=== PATIENT | female | born 1985 | race African-American/Black ===

== ENCOUNTER 2024-01-22 09:11 | Inpatient (IN) | payer OTHER ==
[~2024-01-22] VITALS: Ht 175.3 cm; Wt 109.8 kg
[2024-01-22 09:34] VITALS: PULSE 76; RESP 16; O2SAT 100
--- NOTE | 2024-01-22 09:43 | ED.PDOC ---
General HPI Comments A 38 YEAR OLD FEMALE PRESENTS TO THE ED WITH COMPLAINT OF RIGHT FLANK PAIN. PATIENT STATES SHE HAS BEEN EXPERIENCING RIGHT FLANK PAIN THAT IS WORSE WITH MOVEMENT FOR THE PAST 3 DAYS. PATIENT NOTES SHE WAS ALSO BEEN EXPERIENCING NAUSEA AND VOMITING WITH HER FLANK PAIN. 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 PATIENT DENIES DYSURIA, HEMATURIA, FEVER, CHILLS, SHORTNESS OF BREATH, CHEST PAIN, ABDOMINAL PAIN, HEADACHE, OR OTHER COMPLAINTS. NO OTHER SYMPTOMS OR MODIFYING FACTORS AT THIS TIME. PATIENT IS ALERT, ORIENTED X 4, AND HAS STEADY GAIT. Chief Complaint: Flank Pain Time Seen by MD: 09:20 Primary Care Provider: DIEGO Reviewed notes: Nurses Notes, Medications, Allergies Allergies: Coded Allergies: NO KNOWN ALLERGIES (Unverified , 01/22/24) Information Source: Patient Mode of Arrival: Ambulatory Severity: Moderate Inability to void: None Timing: Days Duration: Since onset, Days Prehospital treatment: None Onset: Spontaneous Symptoms: Other (RIGHT FLANK PAIN) History of: Other (BORN WITH ONLY ONE KIDNEY) Location: (R) Flank Modifying factors: None associated signs and symptoms: Nausea, Vomiting, Flank Pain Past Medical History PAST MEDICAL HISTORY: UTI'S Past Medical History (Other): BORN WITH ONLY 1 KIDNEY Surgical History: Denies all surgeries [employer] History: No Pertinent [employer] History Family History Family History: Reviewed,noncontributory to illness Social History Smoker: Non-Smoker Alcohol: Denies ETOH Use Drugs: Denies Drug Use Lives In: Home Constitutional: denies: chills, diaphoresis, fatigue, fever, malaise, sweats, weakness, others EENTM: denies: blurred vision, double vision, ear bleeding, ear discharge, ear drainage, ear pain, ear ringing, eye pain, eye redness, hearing loss, mouth pain, mouth swelling, nasal discharge, nose bleeding, nose congestion, nose pain, photophobia, tearing, throat pain, throat swelling, voice changes, others Respiratory: denies: cough, hemoptysis, orthopnea, SOB at rest, shortness of breath, SOB with excertion, stridor, wheezing, others Cardiovascular: denies: chest pain, dizzy spells, diaphoresis, Dyspnea on exertion, edema, irregular heart beat, left arm pain, lightheadedness, palpitations, PND, syncope, others Gastrointestinal: reports: nausea, vomiting; denies: abdomen distended, abdominal pain, blood streaked bowels, constipated, diarrhea, dysphagia, difficulty swallowing, hematemesis, melena, poor appetite, poor fluid intake, rectal bleeding, rectal pain, others Genitourinary: reports: flank pain (RIGHT FLANK PAIN); denies: abnormal vagina bleeding, burning, dyspareunia, dysuria, frequency, hematuria, incontinence, pain, , vagina discharge, urgency, others Neurological: denies: dizziness, fainting, headache, left sided numbness, left sided weakness, numbness, paresthesia, pre-existing deficit, right sided numbness, right sided weakness, seizure, speech problems, tingling, tremors, weakness, others Musculoskeletal: denies: back pain, gout, joint pain, joint swelling, muscle pain, muscle stiffness, neck pain, others Integumetry: denies: bruises, change in color, change in hair/nails, dryness, laceration, lesions, lumps, rash, wounds, others Allergic/Immunocompromised: denies: Difficulty Healing, Frequent Infections, Hives, Itching, others Hematologic/Lymphatic: denies: anemia, blood clots, easy bleeding, easy bruising, swollen glands, others Endocrine: denies: excessive hunger, excessive sweating, excessive thirst, excessive urination, flushing, intolerance to cold, intolerance to heat, unexplained weight gain, unexplained weight loss, others Psychiatric: denies: anxiety, bipolar disorder, depression, hopeless, panic disorder, schizophrenia, sleepless, suicidal, others All Other Systems: Reviewed and Negative Physical Exam General Appearance: Mild Distress, Obese HEENT: Normal ENT Inspection, PERRL/EOMI, Pharynx Normal, TMs Normal Neck: Full Range of Motion, Non-Tender, Normal, Normal Inspection Respiratory: Chest Non-Tender, Lungs Clear, No Accessory Muscle Use, No Respiratory Distress, Normal Breath Sounds Cardiovascular: No Edema, No JVD, No Murmur, No Gallop, Normal Peripheral Pulses, Regular Rate/Rhythm Breast Exam: Deferred Gastrointestinal: No Organomegaly, No Pulsatile Mass, Normal Bowel Sounds, Soft, Tenderness (RIGHT FLANK WITH CVA TENDERNESS. ) Genitalia: Deferred Pelvic: Deferred Rectal: Deferred Extremities: No calf tenderness, Normal capillary refill, Normal inspection, Normal range of motion, Non-tender, No pedal edema Musculoskeletal : Apperance: Normal Neurologic: Alert, nutrition faculty member II-XII nml as Tested, No Motor Deficits, Normal Affect, Normal Mood, No Sensory Deficits Cerebellar Function: Normal Reflexes: Normal Skin: Dry, Normal Color, Warm Peripheral Pulses: 2+ carotid (R), 2+ carotid (L) Lymphatic: No Adenopathy Was a procedure done? Was a procedure done?: No Differential Diagnosis Kidney stone (Female): Musculoskeletal pain, Pyelonephritis, Renal failure, Strain, Urolithiasis Kidney stone (Male): N/A Penile/Scrotal: N/A Urinary Problem (Male): N/A Urinary Problem (Female): Pyelonephritis, Urolithiasis, UTI, N/A X-Ray, Labs, Meds, VS Vital Signs Date Time Temp Pulse Resp B/P (MAP) Pulse Ox O2 Delivery O2 Flow Rate FiO2 01/22/24 11:52 60 16 128/89 01/22/24 11:50 60 16 128/89 (102) 100 01/22/24 09:34 97.4 76 16 130/88 (102) 100 97.4 01/22/24 09:34 76 16 100 Room Air* 0 21 01/22/24 09:19 97.4 76 16 130/88 (102) 100 Lab Test 01/22/24 09:35 01/22/24 09:00 Range/Units White Blood Count 7.4 4.4-10.8 10^3/uL Red Blood Count 4.93 4.0-5.20 10^6/uL Hemoglobin 11.9 L 12.2-16.2 g/dL Hematocrit 36.8 36.0-46.0 % Mean Corpuscular Volume 74.6 L 80.0-100.0 fL Mean Corpuscular Hemoglobin 24.1 L 28.0-32.0 pg Mean Corpuscular Hemoglobin Concent 32.3 32.0-36.0 g/dL Red Cell Distribution Width 16.4 H 11.8-14.3 % Platelet Count 274 140-450 10^3/uL Mean Platelet Volume 8.2 6.9-10.8 fL Neutrophils (%) (Auto) 72.9 37.0-80.0 % Lymphocytes (%) (Auto) 20.8 10.0-50.0 % Monocytes (%) (Auto) 5.8 0.0-12.0 % Eosinophils (%) (Auto) 0.1 0.0-7.0 % Basophils (%) (Auto) 0.4 0.0-2.0 % Neutrophils # (Auto) 5.4 1.6-8.6 10 ^3/uL Lymphocytes # (Auto) 1.5 0.4-5.4 10 ^3/uL Monocytes # (Auto) 0.4 0-1.3 10 ^3/uL Eosinophils # (Auto) 0 0-0.8 10 ^3/uL Basophils # (Auto) 0 0-0.2 10 ^3/uL Nucleated Red Blood Cells 0.0 % Sodium Level 139 136-145 mmol/L Potassium Level 3.7 3.5-5.1 mmol/L Chloride Level 105 98-107 mmol/L Carbon Dioxide Level 26 20-31 mmol/L Anion Gap 8 5-15 Blood Urea Nitrogen 7 L 9-23 mg/dL Creatinine 0.96 0.550-1.02 mg/dL Glomerular Filtration Rate Calc 77 >90 mL/min BUN/Creatinine Ratio 7.3 L 10.0-20.0 Serum Glucose 100 74-106 mg/dL Calcium Level 9.6 8.7-10.4 mg/dL Urine Color Yellow Yellow Urine Clarity Turbid H Clear Urine pH 5.5 5.0-9.0 Urine Specific [place] 1.024 1.001-1.035 Urine Protein 1+ H Negative Urine Ketones 3+ H Negative Urine Blood 2+ H Negative /uL Urine Nitrite 2+ H Negative Urine Bilirubin Negative Negative Urine Urobilinogen Normal Negative mg/dL Urine Leukocyte Esterase 1+ Negative /uL Urine RBC 7 0 - 4 /hpf Urine WBC 15 0 - 5 /hpf Urine Squamous Epithelial Cells Few <5 /hpf Urine Bacteria Few H None Seen /hpf Urine Hyaline Casts Few 0 - 2 /lpf Urine Mucus Few None Seen Urine Glucose Normal Normal mg/dL Urine Test Negative Negative Current Medications Medications (Trade) Dose Ordered Sig/Brad Route Start Time Stop Time Status Last Admin Sodium Chloride 1,000 ml @ 1,000 mls/hr Q1H ONCE IV 01/22/24 10:00 01/22/24 10:59 DC 01/22/24 11:51 Ceftriaxone Sodium 50 ml @ 100 mls/hr ONCE ONCE IV 01/22/24 10:00 01/22/24 10:29 DC 01/22/24 11:51 Ondansetron HCl (Zofran) 4 mg ONCE ONCE IV 01/22/24 10:00 01/22/24 10:01 DC 01/22/24 11:51 Morphine Sulfate 2 mg ONCE ONCE IV 01/22/24 11:00 01/22/24 11:01 DC 01/22/24 11:52 X-Ray, Labs, Meds, VS Comment EXTERNAL NOTES: NONE LABS ORDERED: CBC, BMP, UA, URINE , URINE CULTURE, REVIEWED AND INTERPRETED RESULTS: NITRITE 2+, BLOOD 2+, KET 3+, LEUKO 1+ INDEPENDENT HISTORIANS: NONE TREATMENT ORDERED: NS 1 L IV, ROCEPHIN 1 G IV, ZOFRAN 4 MG IV, MORPHINE 2 MG IV PATIENT'S CASE AND RESULTS HAVE BEEN DISCUSSED WITH THE ED ATTENDING PHYSICIAN AND THEY AGREE WITH MY PLAN OF CARE. I HAVE INFORMED THE PATIENT THAT SHE HAS A URINARY TRACT INFECTION AND IS DEHYDRATED. SINCE THE PATIENT IS CURRENTLY EXPERIENCING NAUSEA AND VOMITING, HAS CVA TENDERNESS NOTED UPON PALPATION, AND HAS A HISTORY OF ONLY 1 KIDNEY, I HAVE DETERMINED THE PATIENT SHOULD BE ADMITTED TO THIS HOSPITAL FOR FURTHER TREATMENT AND EVALUATION. I HAVE INFORMED THE PATIENT OF MY PLAN TO ADMIT HER FOR FURTHER TREATMENT AND SHE AGREED WITH MY PLAN OF CARE. THE ON-CALL HOSPITALIST WILL BE CONTACTED AND THE PATIENT WILL BE ADMITTED FOR FURTHER TREATMENT AND EVALUATION. Time of 1ST Reevaluation: 10:36 Reevaluation 1ST: Unchanged Patient Education/Counseling: Diagnosis, Treatment Family Education/Counseling: Diagnosis, Treatment Departure 1 Departure Time of Disposition: 10:36 Impression: Primary Impression: Acute pyelonephritis Disposition: ADMITTED INPATIENT Admit to: Med Surg Condition: Serious Critical Care Note Critical Care Time?: No Stability Stability form required: No Unstable for transfer: Requires medication, ED Physician Assesment, Possible rapid decline Heart Score Heart Score: Heart Score Response (Comments) Value History N/A 0 EKG N/A 0 Age N/A 0 Risk Factors N/A 0 Troponin N/A 0 Total 0 I personally scribed for SARAHI NICOLE ([email or web address]) on 01/22/24 at 09:43. Electronically submitted by Joseph Olson ([email or web address]). I personally scribed for SARAHI NICOLE ([email or web address]) on 01/22/24 at 10:16. Electronically submitted by Joseph Olson ([email or web address]). I personally scribed for SARAHI NICOLE ([email or web address]) on 01/22/24 at 10:42. Electronically submitted by Joseph Olosn ([email or web address]). SARAHI NICOLE Jan 22, 2024 09:43
[2024-01-22 09:44] LABS: Eosinophils # (auto) 0 10 ^3/uL (0-0.8); Lymphocytes # (auto) 1.5 10 ^3/uL (0.4-5.4); Monocytes # (auto) 0.4 10 ^3/uL (0-1.3); Neutrophils # (auto) 5.4 10 ^3/uL (1.6-8.6); White Blood Cell 7.4 10^3/uL (4.4-10.8)
[2024-01-22 09:45] LABS: Basophils # (auto) 0 10 ^3/uL (0-0.2); Basophils % (auto) 0.4 % (0.0-2.0); Eosinophils % (auto) 0.1 % (0.0-7.0); Hematocrit 36.8 % (36.0-46.0); Hemoglobin 11.9 g/dL (12.2-16.2); Lymphocytes % (auto) 20.8 % (10.0-50.0); Mean Corpuscular Hemoglobin 24.1 pg (28.0-32.0); Mean Corpuscular Hgb Conc. 32.3 g/dL (32.0-36.0); Mean Corpuscular Volume 74.6 fL (80.0-100.0); Monocytes % (auto) 5.8 % (0.0-12.0); Neutrophils % (auto) 72.9 % (37.0-80.0); Platelet Count (auto) 274 10^3/uL (140-450); Red Blood Cells 4.93 10^6/uL (4.0-5.20); Red Cell Distribution Width 16.4 % (11.8-14.3)
[2024-01-22 09:48] LABS: Urine Bacteria FEW /hpf (None Seen); Urine Blood 2+ /uL (Negative); Urine Clarity Turbid (Clear); Urine Color Yellow (Yellow); Urine Hyaline Cast FEW /lpf (0 - 2); Urine Mucus FEW (None Seen); Urine Protein, UAD 1+ (Negative); Urine Specific Gravity 1.024 (1.001-1.035); Urine Urobilinogen Normal (Negative); Urine WBC 15 /hpf (0 - 5); Urine pH 5.5 (5.0-9.0)
[2024-01-22 09:53] LABS: Chloride 105 mmol/L (98-107); Potassium 3.7 mmol/L (3.5-5.1); Sodium 139 mmol/L (136-145)
[2024-01-22 09:54] LABS: Anion Gap 8 (5-15); Carbon Dioxide 26 mmol/L (20-31)
[2024-01-22 09:55] LABS: Calcium 9.6 mg/dL (8.7-10.4)
[2024-01-22 09:59] LABS: Glucose 100 mg/dL (74-106)
[2024-01-22 10:08] LABS: BUN/Creatinine Ratio 7.3 (10.0-20.0)
[2024-01-22 10:19] LABS: Blood Urea Nitrogen 7 mg/dL (9-23)
[2024-01-22] MEDS: cefTRIAXone 1GM/50ML D5W 50 ML IV ONE (11:51)
[2024-01-22] MEDS: SODIUM CHLORIDE 0.9% 1,000 ML IV ONE (11:51)
[2024-01-22] MEDS: ONDANSETRON HCL 4 MG/2 ML VIAL IV ONE (11:51)
[2024-01-22] MEDS: MORPHINE SULFATE INJ 2 MG/ml SYRG IV ONE (11:52)
[2024-01-22] MEDS ORDERED: DOCUSATE SOD 100 MG CAP PO PRN (12:30)
[2024-01-22] MEDS ORDERED: ONDANSETRON HCL 4 MG/2 ML VIAL IV PRN (12:30)
[2024-01-22] MEDS ORDERED: MAALOX PLUS or MAALOX 30 ML PO PRN (12:30)
[2024-01-22] MEDS ORDERED: LORazepam 0.5 MG TAB PO PRN (12:30)
[2024-01-22] MEDS ORDERED: TEMAZEPAM 15 MG CAP PO PRN (12:30)
[2024-01-22] MEDS ORDERED: ACETAMINOPHEN 325 MG TAB PO PRN (12:30)
--- NOTE | 2024-01-22 12:39 | DVHHP2 ---
History of Present Illness Reason for Visit: abdominal pain History of Present Illness 38-year-old obese patient with a history of UTIs recurrently patient also has a history of being born only with 1 kidney at this point in time patient is having severe flank pain associated with nausea vomiting headaches fevers and chills with suspected pyelonephritis patient has had this issue multiple times in the past and has been recommended for further evaluation and management and inpatient treatment patient was started on IV antibiotics in the ED we will continue antibiotics inpatient and continue to admit for further evaluation and management Renal/: UTI Review of Systems Constitutional: Yes: Fever, Chills, Weakness; No: Sweats, Malaise, Other Eyes: No: Pain, Vision change, Conjunctivae inflammation, Eyelid inflammation, Other, Redness ENT: No: Ear pain, Ear discharge, Nose pain, Nose discharge, Nose congestion, Mouth pain, Mouth swelling, Throat pain, Throat swelling, Other Respiratory: No: Cough, Dry, Shortness of breath, SOB with excertion, Wheezing, Hemoptysis, Pleuritic Pain, Sputum, Wheezing, Other Cardiovascular: No: Chest Pain, Palpitations, Orthopnea, Paroxysmal Noc. Dyspnea, Edema, Lt Headedness, Other Gastrointestinal: Nausea, Vomiting, Abdominal Pain; No: Diarrhea, Constipation, Melena, Hematochezia, Other Genitourinary: Dysuria, Frequency, Incontinence Musculoskeletal: No: other, neck pain, shoulder pain, arm pain, back pain, hand pain, leg pain, foot pain Skin: No: Rash, Lesions, Jaundice, Bruising, Other Neurological: No: Weakness, Numbness, Incoordination, Change in speech, Confusion, Seizures, Other Allergies: Coded Allergies: NO KNOWN ALLERGIES (Unverified , 01/22/24) Exam Vital Signs Vital Signs Date Time Temp Pulse Resp B/P (MAP) Pulse Ox O2 Delivery O2 Flow Rate FiO2 01/22/24 11:52 60 16 128/89 01/22/24 11:50 100 01/22/24 09:34 97.4 97.4 01/22/24 09:34 Room Air* 0 21 General Appearance: Alert, Oriented X3, mild distress HEENT: Atraumatic, PERRLA, EOMI Respiratory: Clear to auscultation, Normal air movement Cardiovascular: Regular rate, Normal S1, Normal S2 Abdominal: Normal bowel sounds, Soft, No tenderness Extremities: No clubbing, No cyanosis, No edema Skin: No rashes, No breakdown, No significant lesion Neuro: Normal gait, Normal speech Psych/Mental Status: Mood NL Labs/Xrays Labs Test 01/22/24 09:35 01/22/24 09:00 Range/Units White Blood Count 7.4 4.4-10.8 10^3/uL Red Blood Count 4.93 4.0-5.20 10^6/uL Hemoglobin 11.9 L 12.2-16.2 g/dL Hematocrit 36.8 36.0-46.0 % Mean Corpuscular Volume 74.6 L 80.0-100.0 fL Mean Corpuscular Hemoglobin 24.1 L 28.0-32.0 pg Mean Corpuscular Hemoglobin Concent 32.3 32.0-36.0 g/dL Red Cell Distribution Width 16.4 H 11.8-14.3 % Platelet Count 274 140-450 10^3/uL Mean Platelet Volume 8.2 6.9-10.8 fL Neutrophils (%) (Auto) 72.9 37.0-80.0 % Lymphocytes (%) (Auto) 20.8 10.0-50.0 % Monocytes (%) (Auto) 5.8 0.0-12.0 % Eosinophils (%) (Auto) 0.1 0.0-7.0 % Basophils (%) (Auto) 0.4 0.0-2.0 % Neutrophils # (Auto) 5.4 1.6-8.6 10 ^3/uL Lymphocytes # (Auto) 1.5 0.4-5.4 10 ^3/uL Monocytes # (Auto) 0.4 0-1.3 10 ^3/uL Eosinophils # (Auto) 0 0-0.8 10 ^3/uL Basophils # (Auto) 0 0-0.2 10 ^3/uL Nucleated Red Blood Cells 0.0 % Sodium Level 139 136-145 mmol/L Potassium Level 3.7 3.5-5.1 mmol/L Chloride Level 105 98-107 mmol/L Carbon Dioxide Level 26 20-31 mmol/L Anion Gap 8 5-15 Blood Urea Nitrogen 7 L 9-23 mg/dL Creatinine 0.96 0.550-1.02 mg/dL Glomerular Filtration Rate Calc 77 >90 mL/min BUN/Creatinine Ratio 7.3 L 10.0-20.0 Serum Glucose 100 74-106 mg/dL Calcium Level 9.6 8.7-10.4 mg/dL Urine Color Yellow Yellow Urine Clarity Turbid H Clear Urine pH 5.5 5.0-9.0 Urine Specific [place] 1.024 1.001-1.035 Urine Protein 1+ H Negative Urine Ketones 3+ H Negative Urine Blood 2+ H Negative /uL Urine Nitrite 2+ H Negative Urine Bilirubin Negative Negative Urine Urobilinogen Normal Negative mg/dL Urine Leukocyte Esterase 1+ Negative /uL Urine RBC 7 0 - 4 /hpf Urine WBC 15 0 - 5 /hpf Urine Squamous Epithelial Cells Few <5 /hpf Urine Bacteria Few H None Seen /hpf Urine Hyaline Casts Few 0 - 2 /lpf Urine Mucus Few None Seen Urine Glucose Normal Normal mg/dL Urine Test Negative Negative Assessment/Plan Assessment/Plan Admit to [facility] Acute pyelonephritis Patient with signs of leukocytosis White blood cells turbid urine IV hydration IV antibiotics CT abdomen and pelvis rule out hydronephrosis Rule out signs infection based on stones or obstruction Continue with current management p.r.n. management for pain medication Urine cultures to be completed Plan discussed with: Patient My Orders Orders - GENEVA CASEY MD Procedure Category Date Status Time Ct Ab Pel Wo Con-No CT 01/22/24 Logged Oral Or Iv 12:25 Admit ADMIT 01/22/24 Transmitted 12:25 Code Status CODE 01/22/24 Transmitted 12:25 Vital Signs [facility] 01/22/24 In Process 12:25 Review Orders With [facility] 01/22/24 In Process Adm. 12:25 Consistent DIET 01/22/24 Transmitted Carb(Ccho)Diabetes Lunch Sodium Chloride 0.9% [facility] 01/22/24 Logged 12:30 Lorazepam Tablet [facility] 01/22/24 Logged (Ativan Tablet) 12:30 Alum & Mag [facility] 01/22/24 Logged Hydrox-Simethicone 12:30 Docusate Sodium [facility] 01/22/24 Logged Capsule (Colace 12:30 Acetaminophen Tablet [facility] 01/22/24 Logged (Tylenol Tablet) 12:30 Temazepam (Restoril) [facility] 01/22/24 Logged 12:30 Notify Of Changes [facility] 01/22/24 In Process From Base 12:25 Advance Directive [facility] 01/22/24 In Process 12:25 Basic Metabolic Panel LAB 01/23/24 Verified 04:00 Complete Blood Count LAB 01/23/24 Verified 04:00 Urine Bacterial AN 01/22/24 Logged Culture 12:25 Patient Condition ORDERS 01/22/24 Transmitted 12:25 Allergies GIUSEPPE 01/22/24 In Process 12:25 Hydrocodone-Acet [facility] 01/22/24 Logged 5/325mg Tab ([place] 12:30 Ondansetron Hcl [facility] 01/22/24 Logged (Zofran) 12:30 Morphine Sulfate [facility] 01/22/24 Logged Injection 12:30 Notify Md Of Changes GIUSEPPE 01/22/24 In Process From Base 12:25 Oxygen By Nasal RT 01/22/24 Transmitted Cannula 12:25 Ceftriaxone 1gm/50ml [facility] 01/23/24 Logged D5w (Rocephin) 10:00 Problem List: (1) Acute pyelonephritis Date of Service: Jan 22, 2024 Billing Provider: GENEVA CASEY MD Common Visit Codes: [id number] INP/OBS CARE (HIGH) GENEVA CASEY MD Jan 22, 2024 12:39
[2024-01-22] MEDS: SODIUM CHLORIDE 0.9% 1,000 ML IV SCH (12:45)
--- NOTE | 2024-01-22 13:50 | DVH ---
Exam: CT CT AB PEL WO CON-NO ORAL OR IV History: r/o hydroneprhosis and stones Comparison Study: None available at time of dictation. TECHNIQUE: Multidetector CT of the abdomen and pelvis without contrast. Axial, coronal and sagittal m ultiplanar reformats were obtained from the axial data set by the technologist. Radiation Dose Information: CT Dose: CTDI volume is 24.93 mGy. Dose-length product is 1367.97 mGy*cm FINDINGS: The lung bases are clear. Partially visualized heart is unremarkable. Status post cholecystectomy. Mild hepatomegaly. Otherwise, liver, spleen, pancreas and adrenal gland s unremarkable. The right kidney is not visualized with a 2.4 x 1.3 x 3.1 cm soft tissue density over the expected ar ea of the right kidney which is attached by a thin linear tissue to a more inferior 1.1 x 1 x 1.8 cm cystic density. There is hypertrophic appearance of the left kidney. No left renal hydronephrosis or calculi. Mild wall thickening of the anterior urinary bladder which is most likely from inadequate di stension. Uterus and adnexa unremarkable. There appears to be tubal ligation. Mild gastric wall thickening. Small bowel loops unremarkable. Appendix is not definitely visualized. Large bowel is unremarkable. No evidence of intraperitoneal free air or free fluid. No evidence of aortic aneurysm. No significant lymphadenopathy. Tiny fat containing umbilical hernia. The soft tissues unremarkable. No destructive osseous lesions a re noted. Sclerotic focus of the left iliac bone which may represent a bone island with a blastic le mckenna not excluded. Sclerosis of the xevqf-iigagtu-adio-left SI joints which may represent sacroiliiti s. IMPRESSION: Mild gastric wall thickening which may be due to inadequate distention/gastritis. Mild hypertrophy of the left kidney which is otherwise unremarkable. The right kidney is not definitely visualized with a 2.4 x 1.3 x 3.1 cm soft tissue density over the expected area of the right kidney which is attached by a thin linear tissue to a more inferior 1.1 x 1 x 1.8 cm cystic density. 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 Kamar plasm can not be excluded.
[2024-01-22 15:08] VITALS: BP 122/80; PULSE 64; RESP 17; TEMP 98.9; O2SAT 100
[2024-01-22 18:15] VITALS: BP 126/75; PULSE 65; RESP 18; TEMP 98.1; O2SAT 97
[2024-01-22] MEDS: MORPHINE SULFATE INJ 2 MG/ml SYRG IV PRN (18:45)
[2024-01-22 20:00] VITALS: RESP 17
[2024-01-22] MEDS: HYDROcodone-ACET 5/325MG TAB PO PRN (20:23)
[2024-01-22 21:00] VITALS: BP 132/72; PULSE 78; RESP 19; TEMP 97.9; O2SAT 100
[2024-01-23] VITALS (7 sets, daily range): BP systolic 121–151; BP diastolic 55–85; PULSE 60–83; RESP 17–20; TEMP 97.4–98.8; O2SAT 96–100
[2024-01-23 05:52] LABS: Eosinophils # (auto) 0 10 ^3/uL (0-0.8); Mean Corpuscular Hgb Conc. 32.2 g/dL (32.0-36.0); Monocytes # (auto) 0.4 10 ^3/uL (0-1.3); Neutrophils # (auto) 2.9 10 ^3/uL (1.6-8.6); Nucleated Red Blood Cells % 0.2 %; Platelet Count (auto) 227 10^3/uL (140-450)
[2024-01-23 05:57] LABS: Basophils # (auto) 0.1 10 ^3/uL (0-0.2); Basophils % (auto) 1.2 % (0.0-2.0); Eosinophils % (auto) 0.6 % (0.0-7.0); Hematocrit 32.9 % (36.0-46.0); Hemoglobin 10.6 g/dL (12.2-16.2); Lymphocytes # (auto) 2.7 10 ^3/uL (0.4-5.4); Lymphocytes % (auto) 44.3 % (10.0-50.0); Mean Corpuscular Hemoglobin 24.3 pg (28.0-32.0); Mean Corpuscular Volume 75.3 fL (80.0-100.0); Monocytes % (auto) 6.5 % (0.0-12.0); Neutrophils % (auto) 47.4 % (37.0-80.0); Red Blood Cells 4.37 10^6/uL (4.0-5.20); Red Cell Distribution Width 16.3 % (11.8-14.3); White Blood Cell 6.2 10^3/uL (4.4-10.8)
[2024-01-23 06:06] LABS: Anion Gap 8 (5-15); Carbon Dioxide 24 mmol/L (20-31); Sodium 139 mmol/L (136-145)
[2024-01-23 06:12] LABS: BUN/Creatinine Ratio 8.3 (10.0-20.0); Glucose 99 mg/dL (74-106)
[2024-01-23 06:13] LABS: Blood Urea Nitrogen 7 mg/dL (9-23); Calcium 8.6 mg/dL (8.7-10.4); Chloride 107 mmol/L (98-107); Potassium 3.5 mmol/L (3.5-5.1)
[2024-01-23] MEDS: cefTRIAXone 1GM/50ML D5W 50 ML IV SCH (08:26)
--- NOTE | 2024-01-23 15:37 | DVHPNRES ---
Progress Note Date Seen: Jan 23, 2024 Resident Creating Document: ABA RODRIGUES RESIDENT Medical Necessity Reason Pt with a Central, PICC or Fol: No Medical Necessity Reason Right flank pain pyelonephritis Subjective Review of Systems This is a 38-year-old female born with 1 functioning kidney (left) with a history of UTI presented to the ED with one day history of right flank pain that is associated with chills and fever. Flank pain rated as 8/10 with radiation to the right groin. She denied trauma to the abdomen or hematuria. LMP was on 01/16/2024. Patient presented to the ED for further evaluation and management. In the in the ED, initial vitals revealed temperature of 97.4, pulse of 76, respiratory of 16 blood pressure 130/88. Lab work revealed WBC: unremarkable; hemoglobin: 11.9 --> 10.6 with MCV of 74.6. Chemistry was grossly unremarkable urinalysis revealed nitrite 2+, leukocyte esterase 1+ and few bacteria in the urine. CT Abdomen revealed Mild gastric wall thickening which may be due to inadequate distention/gastritis. Mild hypertrophy of the left kidney which is otherwise unremarkable.The right kidney is not definitely visualized with a 2.4 x 1.3 x 3.1 cm soft tissue density over the expected area of the right kidney which is attached by a thin linear tissue to a more inferior 1.1 x 1 x 1.8 cm cystic density. 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 Neoplasm can not be excluded. Constitutional: Fever,chills, right flank pain malaise HEENT: Denies headache, ear pain, ear discharges, conjunctivitis, nasal discharge throat pain Cardiovascular: Denies chest pain, palpitation, orthopnea, PND, or pedal edema Respiratory: Denies shortness of breath, cough cough, sputum production, hemoptysis, GI: abdominal pain, nausea, vomiting; Denies diarrhea, hematemesis, hematochezia, : Right flank pain,Denies frequency, urgency, hematuria, Endocrine: Denies unintentional weight gain or weight loss, feeling of hot flashes, Eliazar: Denies easy bruising, bleeding disorders, epistaxis Musculoskeletal: Denies joint pains, muscle aches Psych: Patient mentioned remembering her son whom she lost in a MVA in August 2023 Objective vital signs Vital Sign Date Time Temp Pulse Resp B/P (MAP) Pulse Ox O2 Delivery O2 Flow Rate FiO2 01/23/24 13:00 98.3 83 17 134/77 (96) 100 98.3 01/23/24 08:15 Room Air* 0 21 Total Intake and Output 01/22/24 01/22/24 01/23/24 15:00 23:00 07:00 Intake Total 1050 ml 1250 ml Balance 1050 ml 1250 ml medications Current Medications Medications Dose Ordered Sig/Brad Route Start Time Stop Time Status Last Admin Dose Admin Sodium Chloride 1,000 ml @ 60 mls/hr [id number] IV 01/22/24 12:30 01/22/24 12:45 60 MLS/HR Lorazepam 0.5 mg Q6HP PRN PO 01/22/24 12:30 Al Hydrox/Mg Hydrox/Simethicone 30 ml Q6HP PRN PO 01/22/24 12:30 Docusate Sodium 100 mg BIDPRN PRN PO 01/22/24 12:30 Acetaminophen 650 mg Q6HP PRN PO 01/22/24 12:30 Temazepam 15 mg QHSP PRN PO 01/22/24 12:30 Acetaminophen/ Hydrocodone Bitart 1 tab Q4HP PRN PO 01/22/24 12:30 01/22/24 20:23 1 TAB Ondansetron HCl 4 mg Q4HP PRN IV 01/22/24 12:30 Morphine Sulfate 2 mg Q4HPRN PRN IV 01/22/24 12:30 01/23/24 05:34 2 MG Ceftriaxone Sodium 50 ml @ 100 mls/hr DAILY IV 01/23/24 10:00 01/23/24 08:26 100 MLS/HR Examination General examination- Mild distress HEENT: PEERLA, no acute nasal discharge Chest: S1-S2 audible, rate and rhythm regular, no murmur Lung: CTAB, no wheeze or rhonchi Abdomen: Right mid quadrant tender. Nondistend, BS+, tenderness, no organomegaly Musculoskeletal: no acute joint swelling or tenderness Extremity: No leg edema Neurological: cranial nerves intact, no acute dysarthria or dysphagia Psychiatry-- Normal mood and affect Skin- no acute rash or purpura laboratory and microbiology Laboratory Tests 01/23/24 05:04 Test 01/23/24 05:04 Range/Units Serum Glucose 99 74-106 mg/dL Microbiology Date/Time Source Procedure Growth Status 01/22/24 09:00 Voided Urine Urine Culture - Preliminary Resulted Labs and/or images reviewed: Labs reviewed by me, Image(s) reviewed by me Problem List/Assessment/Plan Problem List/Assessment/Plan Acute pyelonephritis YUNI; most likely vasomotor nephropathy --> Ruled out nephrolithiasis; reviewed the available imaging studies --->IV hydration; avoid nephrotoxic agents --> urine culture pending --> IV Ceftriaxone Mild microcytic Anemia --> hgb: 11.9 --> 10.6 --> maybe due to ? 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 Manzo Plan discussed with: Patient, Other (Nurse) Addendum Addendum Addendum I was physically present for the russ portions of the service provided to patient by THE RESIDENT. I have reviewed the documentation, discussed the case with resident and agree with the resident's documentation except as noted. Also the patient's clinical case was discussed with the patient's nurse. This medical document was created using an electronic medical record system with computerized dictation system. Although this document has been carefully reviewed, there might still be some phonetic and typographical errors. These areas are purely typographical due to imperfections of the software programs, and do not reflect any compromise in the patient's medical care. Late signature. Date of Service: Jan 23, 2024 Billing Provider: LUCITA MANZO MD Common Visit Codes: [id number] INP/OBS CARE(HIGH) Secondary Visit Codes: [id number] CARE PLAN 30 MINUTES (20 minutes) ABA RODRIGUES RESIDENT Jan 23, 2024 15:36 LUCITA MANZO MD Jan 24, 2024 06:00
[2024-01-24] VITALS (7 sets, daily range): BP systolic 127–144; BP diastolic 69–85; PULSE 64–81; RESP 16–20; TEMP 97.7–98.5; O2SAT 97–100
[2024-01-24 13:30] LABS: Alanine Aminotransferase < 9 U/L (7-40); Albumin 3.5 g/dL (3.2-4.8); Alkaline Phosphatase 42 U/L (46-116); Anion Gap 6 (5-15); Aspartate Aminotransferase 11 U/L (13-40); Bilirubin, Total 0.3 mg/dL (0.2-1.0); Blood Urea Nitrogen < 5 mg/dL (9-23); Calcium 8.9 mg/dL (8.7-10.4); Carbon Dioxide 25 mmol/L (20-31); Chloride 109 mmol/L (98-107); Glucose 103 mg/dL (74-106); Potassium 3.7 mmol/L (3.5-5.1); Sodium 140 mmol/L (136-145); Total Protein 6.4 g/dL (5.7-8.2)
--- NOTE | 2024-01-24 17:46 | DVHPNRES ---
Progress Note Date Seen: Jan 24, 2024 Resident Creating Document: ABA RODRIGUES RESIDENT Medical Necessity Reason Pt with a Central, PICC or Fol: No Medical Necessity Reason Right flank pain pyelonephritis Subjective Review of Systems Seen examined today by the bedside She continues to complain of right flank pain not much different from yesterday. Patient is currently being managed for pyelonephritis with ceftriaxone. CMP today did not reveal any finding within the liver pointing towards any cholestatic processes. We will continue to monitor the patient on antibodies and review as needed. Objective vital signs Vital Sign Date Time Temp Pulse Resp B/P (MAP) Pulse Ox O2 Delivery O2 Flow Rate FiO2 01/24/24 17:04 98.4 66 17 131/76 (94) 98 98.4 01/24/24 08:00 Room Air* 0 21 Total Intake and Output 01/23/24 01/23/24 01/24/24 15:00 23:00 07:00 Intake Total 50 ml 1230 ml 1300 ml Output Total 600 ml 600 ml Balance 50 ml 630 ml 700 ml medications Current Medications Medications Dose Ordered Sig/Brad Route Start Time Stop Time Status Last Admin Dose Admin Sodium Chloride 1,000 ml @ 60 mls/hr [id number] IV 01/22/24 12:30 01/24/24 06:24 60 MLS/HR Lorazepam 0.5 mg Q6HP PRN PO 01/22/24 12:30 Al Hydrox/Mg Hydrox/Simethicone 30 ml Q6HP PRN PO 01/22/24 12:30 Docusate Sodium 100 mg BIDPRN PRN PO 01/22/24 12:30 Acetaminophen 650 mg Q6HP PRN PO 01/22/24 12:30 Temazepam 15 mg QHSP PRN PO 01/22/24 12:30 Acetaminophen/ Hydrocodone Bitart 1 tab Q4HP PRN PO 01/22/24 12:30 01/23/24 20:09 1 TAB Ondansetron HCl 4 mg Q4HP PRN IV 01/22/24 12:30 Morphine Sulfate 2 mg Q4HPRN PRN IV 01/22/24 12:30 01/24/24 09:50 2 MG Ceftriaxone Sodium 50 ml @ 100 mls/hr DAILY IV 01/23/24 10:00 01/24/24 09:42 100 MLS/HR Examination General examination- Mild distress same as yesterday HEENT: PEERLA, no acute nasal discharge Chest: S1-S2 audible, rate and rhythm regular, no murmur Lung: CTAB, no wheeze or rhonchi Abdomen: Right mid quadrant tender. Nondistend, BS+, tenderness, no organomegaly Musculoskeletal: no acute joint swelling or tenderness Extremity: No leg edema Neurological: cranial nerves intact, no acute dysarthria or dysphagia Psychiatry-- Normal mood and affect Skin- no acute rash or purpura laboratory and microbiology Laboratory Tests 01/24/24 12:58 01/23/24 05:04 Test 01/24/24 12:58 Range/Units Serum Glucose 103 74-106 mg/dL Microbiology Date/Time Source Procedure Growth Status 01/22/24 09:00 Voided Urine Urine Culture - Final Complete Problem List/Assessment/Plan Problem List/Assessment/Plan Acute pyelonephritis --> Ruled out nephroliathiasis --->IV hydration --> urine culture: Mixed Nicki; contaminated --> CMP: unrevealing --> Continue Ceftriaxone Mild microcytic Anemia --> hgb: 11.9 --> 10.6 --> maybe due to ? 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 Mauro Plan discussed with: Patient My Orders My Orders Orders - ABA RODRIGUES Procedure Category Date Status Time Drug Screen LAB 01/24/24 Logged 09:04 Date of Service: Jan 24, 2024 Billing Provider: REEAN CARMICHAEL MD Common Visit Codes: [id number] INP/OBS CARE(HIGH) ABA RODRIGUES Jan 24, 2024 17:46 REENA CARMICHAEL MD Jan 31, 2024 00:01
[2024-01-25 01:00] VITALS: BP 135/75; PULSE 86; RESP 16; TEMP 97.9; O2SAT 98
[2024-01-25 05:00] VITALS: BP 123/78; PULSE 80; RESP 17; TEMP 98.2; O2SAT 99
[2024-01-25 09:28] VITALS: BP 133/80; PULSE 68; RESP 17; TEMP 98.3; O2SAT 100
[2024-01-25] MEDS ORDERED: CYCL-837 PO (11:00)
[2024-01-25 11:10] VITALS: BP 133/80; PULSE 68; RESP 17; TEMP 98.3; O2SAT 100
--- NOTE | 2024-01-25 19:18 | DVHDSRES ---
Discharge Summary Date of Admission Resident Creating Document: ABA RODRIGUES RESIDENT Jan 22, 2024 at 12:25 Date of Discharge: Jan 25, 2024 Admitting Diagnosis right flank pain, chills, and fever. Labs/Diagnostic Data: Laboratory Results Test 01/24/24 12:58 01/23/24 05:04 01/22/24 09:00 Sodium Level 140 mmol/L (136-145) Potassium Level 3.7 mmol/L (3.5-5.1) Chloride Level 109 mmol/L (98-107) Carbon Dioxide Level 25 mmol/L (20-31) Anion Gap 6 (5-15) Blood Urea Nitrogen < 5 mg/dL (9-23) Creatinine 0.83 mg/dL (0.550-1.02) Glomerular Filtration Rate Calc 92 mL/min (>90) BUN/Creatinine Ratio 6.0 (10.0-20.0) Serum Glucose 103 mg/dL (74-106) Calcium Level 8.9 mg/dL (8.7-10.4) Total Bilirubin 0.3 mg/dL (0.2-1.0) Aspartate Amino Transferase (AST) 11 U/L (13-40) Alanine Aminotransferase (ALT) < 9 U/L (7-40) Alkaline Phosphatase 42 U/L (46-116) Total Protein 6.4 g/dL (5.7-8.2) Albumin 3.5 g/dL (3.2-4.8) White Blood Count 6.2 10^3/uL (4.4-10.8) Red Blood Count 4.37 10^6/uL (4.0-5.20) Hemoglobin 10.6 g/dL (12.2-16.2) Hematocrit 32.9 % (36.0-46.0) Mean Corpuscular Volume 75.3 fL (80.0-100.0) Mean Corpuscular Hemoglobin 24.3 pg (28.0-32.0) Mean Corpuscular Hemoglobin Concent 32.2 g/dL (32.0-36.0) Red Cell Distribution Width 16.3 % (11.8-14.3) Platelet Count 227 10^3/uL (140-450) Mean Platelet Volume 8.6 fL (6.9-10.8) Neutrophils (%) (Auto) 47.4 % (37.0-80.0) Lymphocytes (%) (Auto) 44.3 % (10.0-50.0) Monocytes (%) (Auto) 6.5 % (0.0-12.0) Eosinophils (%) (Auto) 0.6 % (0.0-7.0) Basophils (%) (Auto) 1.2 % (0.0-2.0) Neutrophils # (Auto) 2.9 10 ^3/uL (1.6-8.6) Lymphocytes # (Auto) 2.7 10 ^3/uL (0.4-5.4) Monocytes # (Auto) 0.4 10 ^3/uL (0-1.3) Eosinophils # (Auto) 0 10 ^3/uL (0-0.8) Basophils # (Auto) 0.1 10 ^3/uL (0-0.2) Nucleated Red Blood Cells 0.2 % Urine Color Yellow (Yellow) Urine Clarity Turbid (Clear) Urine pH 5.5 (5.0-9.0) Urine Specific [place] 1.024 (1.001-1.035) Urine Protein 1+ (Negative) Urine Ketones 3+ (Negative) Urine Blood 2+ /uL (Negative) Urine Nitrite 2+ (Negative) Urine Bilirubin Negative (Negative) Urine Urobilinogen Normal mg/dL (Negative) Urine Leukocyte Esterase 1+ /uL (Negative) Urine RBC 7 /hpf (0 - 4) Urine WBC 15 /hpf (0 - 5) Urine Squamous Epithelial Cells Few /hpf (<5) Urine Bacteria Few /hpf (None Seen) Urine Hyaline Casts Few /lpf (0 - 2) Urine Mucus Few (None Seen) Urine Glucose Normal mg/dL (Normal) Urine Test Negative (Negative) Other Laboratory Tests 01/24/24 12:58 01/23/24 05:04 Brief Hx & Hospital Course: Ms Georgi Mathew, a 38-year-old female born with 1 functioning kidney (left) with a history of UTI presented to the ED with one day history of right flank pain that is associated with chills and fever. Flank pain was rated 8/10 with radiation to the right groin. She denied trauma to the abdomen or hematuria. LMP was on 01/16/2024. Patient presented to the ED for further evaluation and management. In the ED, initial vitals revealed temperature of 97.4, HR: 76,RR:16 and BP:130/88. Lab work WBC: unremarkable; hemoglobin: 11.9 --> 10.6 with MCV of 74.6. CMP was grossly unremarkable and urinalysis revealed nitrite 2+, leukocyte esterase 1+ and few bacteria in the urine. CT Abdomen revealed Mild gastric wall thickening which may be due to inadequate distention/gastritis. Mild hypertrophy of the left kidney which is otherwise unremarkable.The right kidney was not definitely visualized with a 2.4 x 1.3 x 3.1 cm soft tissue density over the expected area of the right kidney which is attached by a thin linear tissue to a more inferior 1.1 x 1 x 1.8 cm cystic density. 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 Neoplasm can not be excluded. Urine culture grew mixed harish. Patient was managed for UTI with ceftriaxone and she was also giveN morphine for pain. Each day, the pain seemed to decrease in intensity. On my assessment today, patient was in less pain. She had no fever or chill. She seemed stable. General examination- Not in distress, HEENT: PEERLA, no acute nasal discharge Chest: S1-S2 audible, rate and rhythm regular, no murmur Lung: CTAB, no wheeze or rhonchi Abdomen: IMPROVED RIGHT mid quadrant tender. 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 We will send the patient home cyclobenzaprine 5mg Case and discharge plan was discussed with Dr. Mauro Operations or Procedures PATIENT: REX SHRESTHALASHONETEACCT: [id number] UNIT: [id number] : 1985 LOC: OVERFLOW ROOM / BED: 1018-ER / A AGE / SEX: 38 / F ADM STATUS: ADM IN SERVICE 1225 ORDERING PHYSICIAN: GENEVA CASEY MD PROCEDURE(s): ABPL - CT AB PEL WO CON-NO ORAL OR IV REASON: r/o hydroneprhosis and stones ORDER NUMBER(s): [id number], ACCESSION NUMBER(s): [id number] Exam: CT CT AB PEL WO CON-NO ORAL OR IV History: r/o hydroneprhosis and stones Comparison Study: None available at time of dictation. TECHNIQUE: Multidetector CT of the abdomen and pelvis without contrast. Axial, coronal and sagittal multiplanar reformats were obtained from the axial data set by the technologist. Radiation Dose Information: CT Dose: CTDI volume is 24.93 mGy. Dose-length product is 1367.97 mGy*cm FINDINGS: The lung bases are clear. Partially visualized heart is unremarkable. Status post cholecystectomy. Mild hepatomegaly. Otherwise, liver, spleen, pancreas and adrenal glands unremarkable. The right kidney is not visualized with a 2.4 x 1.3 x 3.1 cm soft tissue density over the expected area of the right kidney which is attached by a thin linear tissue to a more inferior 1.1 x 1 x 1.8 cm cystic density. There is hypertrophic appearance of the left kidney. No left renal hydronephrosis or calculi. Mild wall thickening of the anterior urinary bladder which is most likely from inadequate distension. Uterus and adnexa unremarkable. There appears to be tubal ligation. Mild gastric wall thickening. Small bowel loops unremarkable. Appendix is not definitely visualized. Large bowel is unremarkable. No evidence of intraperitoneal free air or free fluid. No evidence of aortic aneurysm. No significant lymphadenopathy. Tiny fat containing umbilical hernia. The soft tissues unremarkable. No destructive osseous lesions are noted. Sclerotic focus of the left iliac bone which may represent a bone island with a blastic lesion not excluded. Sclerosis of the [id number]-left SI joints which may represent sacroiliitis. IMPRESSION: Mild gastric wall thickening which may be due to inadequate distention/gastritis. Mild hypertrophy of the left kidney which is otherwise unremarkable. The right kidney is not definitely visualized with a 2.4 x 1.3 x 3.1 cm soft tissue density over the expected area of the right kidney which is attached by a thin linear tissue to a more inferior 1.1 x 1 x 1.8 cm cystic density. 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 Neoplasm can not be excluded. 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 Patient was counseled about treatment plan, medications, possible side effects, patientverbalized understanding. All questions were answered to the best of my ability. This discharge took greater then 30 minutes in planning, reviewing documentation, counseling the patient, and discussing with other team members." ASSESSMENT ASSESSMENT Assessment Lower back pain, muscle spasm Date of Service: Jan 25, 2024 Billing Provider: REENA CARMICHAEL MD Common Visit Codes: [id number]/[id number] DISCH DAY >30min ABA RODRIGUES RESIDENT Jan 25, 2024 19:18 REENA CARMICHAEL MD Jan 30, 2024 23:53
== END 2024-01-25 12:40 | disposition home or self-care (01) | DRG 463 ==
LOC: ER 09:11 → OVERFLOW 12:25 → WEST WING 18:00
PROVIDERS: ADMIT Student in an Organized Health Care Education/Training Program; ATTEND Student in an Organized Health Care Education/Training Program
DX: N10 Acute pyelonephritis (principal); D50.9 Iron deficiency anemia, unspecified; E66.9 Obesity, unspecified; Z68.34 Body mass index [BMI] 34.0-34.9, adult; Z87.440 Personal history of urinary (tract) infections; Z68.35 Body mass index [BMI] 35.0-35.9, adult
CPT/HCPCS: 36415; 74176; 80048; 80053; 81001; 81025; 85025; 87086; G0378; J2405